=== PATIENT | male | born 1965 | race Caucasian/White ===

== ENCOUNTER 2018-05-09 07:33 | Day surgery (SDC) | payer BC ==
[2018-05-08 12:32] VITALS: BMI 20.7
[2018-05-09] MEDS ORDERED: Lidocaine 1% w/Epinephrine 1:100K 20 ML VIAL ONE (10:11)
[2018-05-09] MEDS ORDERED: Fentanyl 100 MCG/2 ML VIAL ONE (10:18)
[2018-05-09] MEDS ORDERED: Dexamethasone 20 MG/5 ML VIAL ONE (13:20)
[2018-05-09] MEDS ORDERED: Ondansetron PF 4 MG/2 ML Vial ONE (13:20)
[2018-05-09] MEDS ORDERED: Rocuronium Bromide 10 MG/ML (10ML VIAL) ONE (13:20)
[2018-05-09] MEDS ORDERED: PROPOFOL 200 MG/20 ML VIAL ONE (13:20)
[2018-05-09] MEDS ORDERED: Lidocaine 1% PF 5 ML VIAL ONE (13:20)
[2018-05-09] MEDS ORDERED: Glycopyrrolate 0.2 MG/ML 5 ML SYRINGE ONE (13:20)
--- NOTE | 2018-05-10 12:04 | OP ---
DATE OF PROCEDURE: 05/09/2018 PREOPERATIVE DIAGNOSIS: History of metastatic neck squamous cell carcinoma. POSTOPERATIVE DIAGNOSIS: History of metastatic neck squamous cell carcinoma. PROCEDURE PERFORMED: Right lateral selective neck dissection. ESTIMATED BLOOD LOSS: 20 mL. COMPLICATIONS: None. ANESTHESIA: GETA. DESCRIPTION OF PROCEDURE: The patient was taken to the operating room, placed supine on the table. General endotracheal anesthesia was obtained by the Anesthesia staff. Tube was secured in the left lower lip. A shoulder roll was placed and its head was gently turned exposing the right neck. The patient was prepped and draped in standard surgical fashion. Following this, an incision was made beginning from the mastoid tip and then extending 2 cm below the angle of the mandible onto a neck crease horizontally. Incision was made through the skin, the subcutaneous tissue, and the platysmal layer. Subplatysmal flaps were elevated superiorly and inferiorly. Following this, the submandibular gland was retracted superiorly and dissection was carried down to the digastric muscle. The facial vein was suture ligated in this process. Following that, the anterior fascia of the sternocleidomastoid was identified and was dissected anteriorly from the sternocleidomastoid. The spinal accessory nerve on the right was identified and was noted to be coursing lateral to the internal jugular vein. The level 2A contents along with a level 2B contents, which included a 3-cm rubbery lymph node were removed. Inferior margin of the level 2 lymphatic pedicle was suture ligated. This specimen was sent for pathological analysis, which showed degenerated and necrotic debris. There was one area of concern that they requested more pathological time for analysis; therefore, the wound was irrigated and closed with Monocryl stitches and 4-0 nylon for the skin layer. The patient tolerated the procedure well. Job ID: [id number]
== END 2018-05-09 13:36 | disposition home or self-care (01) ==
LOC: SDC 07:33
PROVIDERS: ATTEND Otolaryngology Plastic Surgery within the Head & Neck
PROC: 07T10ZZ Resection of Right Neck Lymphatic, Open Approach (ICD-10-PCS; principal; 2018-05-09)
DX: L04.0 Acute lymphadenitis of face, head and neck (principal); Z85.828 Personal history of other malignant neoplasm of skin
CPT/HCPCS: 88307; 88331; 88332; 93005; 93010; J1100; J2001; J2405; J2704; J3010